=== PATIENT | female | born 2000 | race Two or more races ===

== ENCOUNTER 2020-03-08 13:38 | Emergency (ER) | payer OTHER ==
[~2020-03-08] VITALS: Ht 162.6 cm; Wt 83.9 kg
[2020-03-08] MEDS ORDERED: SODIUM CHLORIDE 0.9% 1,000 ML IV ONE (14:30)
[2020-03-08] MEDS ORDERED: AZITHROMYCIN 500MG/ 250ML 250 ML IV ONE (14:30)
[2020-03-08] MEDS ORDERED: methylPREDNISolone SOD SUCC 125 MG/2 ML VL IV ONE (14:30)
[2020-03-08 15:10] LABS: Basophils # (auto) 0 10 ^3/uL (0-0.2); Basophils % (auto) 0.2 % (0.0-2.0); Eosinophils # (auto) 0 10 ^3/uL (0-0.8); Hemoglobin 14.2 g/dL (12.2-16.2); Lymphocytes % (auto) 20.7 % (10.0-50.0); Mean Corpuscular Hemoglobin 30.1 pg (28.0-32.0); Mean Corpuscular Hgb Conc. 33.1 g/dL (32.0-36.0); Mean Corpuscular Volume 90.8 fL (80.0-100.0); Monocytes # (auto) 0.3 10 ^3/uL (0-1.3); Monocytes % (auto) 6.3 % (0.0-12.0); Neutrophils # (auto) 3.7 10 ^3/uL (1.6-8.6); Neutrophils % (auto) 72.8 % (37.0-80.0); Nucleated Red Blood Cells % 0.1 %; Platelet Count (auto) 148 10^3/uL (140-450); Red Blood Cells 4.73 10^6/uL (4.0-5.20); Red Cell Distribution Width 13.5 % (11.8-14.3)
[2020-03-08 15:18] LABS: Calcium 8.5 mg/dL (8.5-10.1); Potassium 4.4 mmol/L (3.5-5.1)
[2020-03-08 15:27] LABS: BUN/Creatinine Ratio 12.8; Bilirubin, Total 0.4 mg/dL (0.2-1.0); CRP High Sensitivity 2.49 mg/dL (< 0.3); Total Protein 8.5 g/dL (6.4-8.2)
[2020-03-08] MEDS ORDERED: hydrOXYchloroQUINE SULFATE 200 MG TAB PO ONE (15:45)
[2020-03-08] MEDS ORDERED: ACETAMINOPHEN 325 MG TAB PO ONE (17:00)
[2020-03-08 18:48] VITALS: BP 102/59
== END 2020-03-08 20:57 | disposition home or self-care (01) ==
LOC: ER 13:38
DX: R06.02 Shortness of breath (principal); R50.9 Fever, unspecified; R07.89 Other chest pain; Z20.828 Contact with and (suspected) exposure to other viral communicable diseases
CPT/HCPCS: 36415; 71045; 80053; 82728; 83615; 85025; 85379; 86141; 96365; 96366; 96375; 99284; J0456; J2930

== ENCOUNTER 2022-04-28 00:32 | Emergency (ER) | payer MEDICAID, OTHER ==
[~2022-04-28] VITALS: Ht 162.6 cm; Wt 84.0 kg
[2022-04-28 00:47] VITALS: BP 122/86
[2022-04-28] MEDS ORDERED: ONDANSETRON ODT 4 MG TAB PO ONE (01:00)
[2022-04-28] MEDS ORDERED: OXYCODONE W/ ACETAMINOPHEN 5/325MG TABLET PO ONE (01:00)
[2022-04-28 01:21] LABS: Basophils # (auto) 0 10 ^3/uL (0-0.2); Basophils % (auto) 0.3 % (0.0-2.0); Eosinophils # (auto) 0.1 10 ^3/uL (0-0.8); Eosinophils % (auto) 0.6 % (0.0-7.0); Hematocrit 39.5 % (36.0-46.0); Hemoglobin 13.3 g/dL (12.2-16.2); Lymphocytes # (auto) 2.3 10 ^3/uL (0.4-5.4); Lymphocytes % (auto) 22.8 % (10.0-50.0); Mean Corpuscular Hgb Conc. 33.7 g/dL (32.0-36.0); Mean Corpuscular Volume 89.2 fL (80.0-100.0); Monocytes # (auto) 0.6 10 ^3/uL (0-1.3); Monocytes % (auto) 5.7 % (0.0-12.0); Neutrophils # (auto) 7.2 10 ^3/uL (1.6-8.6); Neutrophils % (auto) 70.6 % (37.0-80.0); Nucleated Red Blood Cells % 0.1 %; Red Blood Cells 4.43 10^6/uL (4.0-5.20); Red Cell Distribution Width 13.4 % (11.8-14.3); White Blood Cell 10.3 10^3/uL (4.4-10.8)
[2022-04-28 01:41] LABS: Albumin 3.9 g/dL (3.4-5.0); BUN/Creatinine Ratio 12.8; Potassium 4.2 mmol/L (3.5-5.1)
[2022-04-28 01:44] LABS: Bilirubin, Total 0.3 mg/dL (0.2-1.0); Total Protein 7.7 g/dL (6.4-8.2)
[2022-04-28 02:45] LABS: Urine Bacteria NONE SEEN /hpf (None Seen); Urine Blood Negative /uL (Negative); Urine Specific Gravity 1.024 (1.001-1.035); Urine WBC 1 /hpf (0 - 5)
== END 2022-04-28 03:39 | disposition left against medical advice (07) ==
LOC: ER 00:35
DX: R10.31 Right lower quadrant pain (principal)
CPT/HCPCS: 36415; 71045; 74176; 80053; 81001; 83690; 85025

== ENCOUNTER 2022-08-31 13:03 | Inpatient (IN) | payer MEDICAID ==
[~2022-08-31] VITALS: Ht 160 cm; Wt 93.3 kg
[2022-08-31] MEDS ORDERED: DONNATAL 5ml ORAL Elix (BELLADONNA ALK-PHENOBARB) PO ONE (13:15)
[2022-08-31] MEDS ORDERED: LIDOCAINE VISCOUS 2% 15ML UD PO ONE (13:15)
[2022-08-31] MEDS ORDERED: MAALOX PLUS or MAALOX 30 ML PO ONE (13:15)
[2022-08-31] MEDS ORDERED: PANT40TA2 PO (13:47)
[2022-08-31 13:52] LABS: Basophils # (auto) 0.1 10 ^3/uL (0-0.2); Basophils % (auto) 0.6 % (0.0-2.0); Eosinophils # (auto) 0.1 10 ^3/uL (0-0.8); Eosinophils % (auto) 0.7 % (0.0-7.0); Hematocrit 41.2 % (36.0-46.0); Hemoglobin 13.7 g/dL (12.2-16.2); Lymphocytes # (auto) 2.2 10 ^3/uL (0.4-5.4); Lymphocytes % (auto) 15.7 % (10.0-50.0); Mean Corpuscular Hemoglobin 29.7 pg (28.0-32.0); Mean Corpuscular Hgb Conc. 33.2 g/dL (32.0-36.0); Mean Corpuscular Volume 89.4 fL (80.0-100.0); Monocytes # (auto) 0.8 10 ^3/uL (0-1.3); Neutrophils # (auto) 10.6 10 ^3/uL (1.6-8.6); Red Blood Cells 4.61 10^6/uL (4.0-5.20); Red Cell Distribution Width 13.2 % (11.8-14.3); White Blood Cell 13.8 10^3/uL (4.4-10.8)
[2022-08-31 14:25] LABS: Albumin 3.8 g/dL (3.4-5.0); BUN/Creatinine Ratio 9.1; Calcium 9.1 mg/dL (8.5-10.1)
[2022-08-31 14:28] LABS: Bilirubin, Total 0.6 mg/dL (0.2-1.0); Total Protein 8.2 g/dL (6.4-8.2)
[2022-08-31] MEDS ORDERED: ONDANSETRON HCL 4 MG/2 ML VIAL IV ONE (17:45)
[2022-08-31] MEDS ORDERED: MORPHINE SULFATE 4 MG/ML SYR/VIAL IV ONE (17:45)
[2022-08-31 18:45] LABS: Urine Bacteria FEW /hpf (None Seen); Urine Blood Negative /uL (Negative); Urine Mucus FEW (None Seen); Urine Specific Gravity 1.015 (1.001-1.035); Urine WBC 2 /hpf (0 - 5)
[2022-08-31] MEDS ORDERED: HYDROcodone-ACET 5/325MG TAB PO PRN (21:30)
[2022-08-31] MEDS ORDERED: ACETAMINOPHEN 325 MG TAB PO PRN (21:30)
[2022-08-31] MEDS ORDERED: MORPHINE SULFATE INJ 2 MG/ml SYRG IV PRN (21:30)
[2022-08-31] MEDS ORDERED: ONDANSETRON HCL 4 MG/2 ML VIAL IV PRN (21:30)
[2022-08-31] MEDS ORDERED: NITROGLYCERIN 0.4 MG SL TAB SL PRN (21:30)
[2022-08-31] MEDS ORDERED: PANTOPRAZOLE 40 MG TAB PO ONE (21:30)
[2022-08-31] MEDS ORDERED: TEMAZEPAM 15 MG CAP PO PRN (21:30)
[2022-08-31] MEDS ORDERED: CALCIUM CARB 500 MG CHEW TAB PO ONE (21:45)
[2022-09-01] VITALS (7 sets, daily range): BP systolic 98–124; BP diastolic 64–84
[2022-09-01 05:12] LABS: Basophils # (auto) 0 10 ^3/uL (0-0.2); Basophils % (auto) 0.5 % (0.0-2.0); Eosinophils # (auto) 0.1 10 ^3/uL (0-0.8); Eosinophils % (auto) 0.9 % (0.0-7.0); Hemoglobin 13.3 g/dL (12.2-16.2); Lymphocytes # (auto) 2.2 10 ^3/uL (0.4-5.4); Mean Corpuscular Hgb Conc. 33.3 g/dL (32.0-36.0); Mean Corpuscular Volume 90.2 fL (80.0-100.0); Monocytes # (auto) 0.7 10 ^3/uL (0-1.3); Monocytes % (auto) 9.4 % (0.0-12.0); Neutrophils # (auto) 4.4 10 ^3/uL (1.6-8.6); Neutrophils % (auto) 59.2 % (37.0-80.0); Nucleated Red Blood Cells % 0.1 %; Red Blood Cells 4.44 10^6/uL (4.0-5.20); Red Cell Distribution Width 13.6 % (11.8-14.3); White Blood Cell 7.5 10^3/uL (4.4-10.8)
[2022-09-01 05:29] LABS: Calcium 9.2 mg/dL (8.5-10.1); Potassium 4.1 mmol/L (3.5-5.1)
[2022-09-01 05:31] LABS: BUN/Creatinine Ratio 12.1
[2022-09-01] MEDS: PANTOPRAZOLE 40 MG TAB PO SCH (08:14)
[2022-09-01 15:17] LABS: Alcohol, Urine < 3.0 mg/dL (0-10); Amphetamine Screen, Urine NEGATIVE (NEGATIVE); Barbiturate Scree,Urine NEGATIVE (NEGATIVE); Benzodiazephine Screen, Urine NEGATIVE (NEGATIVE); Cannabinoid Screen, Urine NEGATIVE (NEGATIVE); Cocaine Screen, Urine NEGATIVE (NEGATIVE); Opiate Scree,Urine NEGATIVE (NEGATIVE); Phencyclidine Screen, Urine NEGATIVE (NEGATIVE)
[2022-09-02 04:58] VITALS: BP 108/50
[2022-09-02 06:31] LABS: Albumin 3.4 g/dL (3.4-5.0); Calcium 9.1 mg/dL (8.5-10.1); Potassium 3.9 mmol/L (3.5-5.1)
[2022-09-02 06:34] LABS: BUN/Creatinine Ratio 12.7
[2022-09-02 06:37] LABS: Bilirubin, Total 0.9 mg/dL (0.2-1.0); Total Protein 7.4 g/dL (6.4-8.2)
[2022-09-02 06:46] LABS: INR 0.98 (0.9-1.15); Partial Thromboplastin Time 28.4 sec (24.6-33.4)
[2022-09-02 09:00] VITALS: BP 107/63
[2022-09-02] MEDS: PANTOPRAZOLE 40 MG TAB PO SCH (09:28)
[2022-09-02] MEDS ORDERED: fentaNYL CITRATE 100 MCG/2 ML VL ONE (10:28)
[2022-09-02] MEDS ORDERED: LIDOCAINE VISCOUS 2% 15ML UD ONE (10:28)
[2022-09-02] MEDS ORDERED: SODIUM CHLORIDE LOCK 0 ML ONE (10:28)
[2022-09-02] MEDS ORDERED: diphenhdrAMINE HCL 50 MG/1 ML VL ONE (10:28)
[2022-09-02] MEDS ORDERED: EPINEPHrine HCL 1 MG/10 ML SYRG ONE (10:29)
[2022-09-02] MEDS ORDERED: MIDAZOLAM HCL 2MG/2ML 2ml VIAL (1mg/ml) ONE (10:29)
[2022-09-02 13:00] VITALS: BP 121/54
[2022-09-02] MEDS ORDERED: PROPOFOL 10 MG/ML 20 ML IV ONE (16:20)
[2022-09-02 17:00] VITALS: BP 100/63
[2022-09-02] MEDS ORDERED: ONDANSETRON HCL 4 MG/2 ML VIAL IV PRN (17:00)
[2022-09-02 20:00] VITALS: BP 113/74
[2022-09-02 22:00] VITALS: BP 113/74
[2022-09-03 05:00] VITALS: BP 109/65
[2022-09-03 05:41] LABS: Potassium 4.2 mmol/L (3.5-5.1)
[2022-09-03 05:47] LABS: Albumin 3.5 g/dL (3.4-5.0); BUN/Creatinine Ratio 21.1
[2022-09-03 05:50] LABS: Bilirubin, Total 0.5 mg/dL (0.2-1.0); Total Protein 6.8 g/dL (6.4-8.2)
[2022-09-03] MEDS: PANTOPRAZOLE 40 MG TAB PO SCH (08:06)
[2022-09-03 08:30] VITALS: BP 101/65
[2022-09-03] MEDS ORDERED: KETOROLAC TROMETH 30 MG/ML 1ML VIAL IV PRN (09:45)
[2022-09-03 10:53] LABS: Hepatitis A Total Antibody Positive (Negative)
[2022-09-03 11:25] LABS: Hepatitis B Surface Antibody Negative (Negative)
[2022-09-03 12:25] VITALS: BP 112/72
[2022-09-03 13:08] LABS: Hepatitis C Antibody Negative (Negative)
[2022-09-03] MEDS ORDERED: HYDROmorphone HCL 2 MG/ML VL/or syr IV ONE (16:15)
[2022-09-03 16:20] VITALS: BP 112/68
[2022-09-03 22:00] VITALS: BP 112/73
[2022-09-04 05:00] VITALS: BP 100/64
[2022-09-04 08:33] LABS: Albumin 3.5 g/dL (3.4-5.0); BUN/Creatinine Ratio 18.5; Potassium 4.3 mmol/L (3.5-5.1)
[2022-09-04 08:36] LABS: Total Protein 7.1 g/dL (6.4-8.2)
[2022-09-04 08:49] LABS: Basophils # (auto) 0 10 ^3/uL (0-0.2); Basophils % (auto) 0.4 % (0.0-2.0); Eosinophils # (auto) 0.1 10 ^3/uL (0-0.8); Eosinophils % (auto) 1.9 % (0.0-7.0); Hematocrit 41.1 % (36.0-46.0); Hemoglobin 13.2 g/dL (12.2-16.2); Lymphocytes % (auto) 30.5 % (10.0-50.0); Mean Corpuscular Hgb Conc. 32.1 g/dL (32.0-36.0); Mean Corpuscular Volume 90.4 fL (80.0-100.0); Monocytes # (auto) 0.5 10 ^3/uL (0-1.3); Monocytes % (auto) 8.1 % (0.0-12.0); Neutrophils # (auto) 3.9 10 ^3/uL (1.6-8.6); Neutrophils % (auto) 59.1 % (37.0-80.0); Red Blood Cells 4.54 10^6/uL (4.0-5.20); Red Cell Distribution Width 13.7 % (11.8-14.3); White Blood Cell 6.5 10^3/uL (4.4-10.8)
[2022-09-04] MEDS: PANTOPRAZOLE 40 MG TAB PO SCH (09:02)
[2022-09-04 09:11] VITALS: BP 104/62
[2022-09-04 13:06] VITALS: BP 117/67
[2022-09-04 17:00] VITALS: BP 112/63
[2022-09-04 22:00] VITALS: BP 111/65
[2022-09-05 05:00] VITALS: BP 101/59
[2022-09-05 08:30] VITALS: BP 116/66
[2022-09-05] MEDS: PANTOPRAZOLE 40 MG TAB PO SCH (08:42)
[2022-09-05 13:20] VITALS: BP 118/45
[2022-09-05 17:00] VITALS: BP 138/76
[2022-09-05 20:00] VITALS: BP 100/65
[2022-09-05 22:00] VITALS: BP 100/65
[2022-09-06 04:58] VITALS: BP 101/56
[2022-09-06] MEDS: PANTOPRAZOLE 40 MG TAB PO SCH (08:58)
[2022-09-06 09:00] VITALS: BP_SYST 115; BP_SYST 99; BP_DIAS 57; BP_DIAS 68
[2022-09-06 12:59] VITALS: BP 98/55
[2022-09-06 17:00] VITALS: BP 105/63
[2022-09-06 20:00] VITALS: BP 109/60
[2022-09-06 22:00] VITALS: BP 109/60
[2022-09-07 05:00] VITALS: BP 95/57
[2022-09-07 05:37] LABS: INR 0.93 (0.9-1.15); Partial Thromboplastin Time 27.3 sec (24.6-33.4)
[2022-09-07 05:42] LABS: Albumin 3.7 g/dL (3.4-5.0); Calcium 9.1 mg/dL (8.5-10.1); Potassium 4.7 mmol/L (3.5-5.1)
[2022-09-07 05:43] LABS: Basophils # (auto) 0 10 ^3/uL (0-0.2); Basophils % (auto) 0.3 % (0.0-2.0); Eosinophils # (auto) 0.2 10 ^3/uL (0-0.8); Eosinophils % (auto) 2.6 % (0.0-7.0); Hematocrit 39.3 % (36.0-46.0); Hemoglobin 12.7 g/dL (12.2-16.2); Lymphocytes # (auto) 2.9 10 ^3/uL (0.4-5.4); Lymphocytes % (auto) 35.2 % (10.0-50.0); Mean Corpuscular Hemoglobin 29.3 pg (28.0-32.0); Mean Corpuscular Hgb Conc. 32.3 g/dL (32.0-36.0); Mean Corpuscular Volume 90.8 fL (80.0-100.0); Monocytes # (auto) 0.6 10 ^3/uL (0-1.3); Monocytes % (auto) 7.8 % (0.0-12.0); Neutrophils # (auto) 4.4 10 ^3/uL (1.6-8.6); Neutrophils % (auto) 54.1 % (37.0-80.0); Nucleated Red Blood Cells % 0.1 %; Red Blood Cells 4.33 10^6/uL (4.0-5.20); Red Cell Distribution Width 13.6 % (11.8-14.3); White Blood Cell 8.1 10^3/uL (4.4-10.8)
[2022-09-07 05:47] LABS: BUN/Creatinine Ratio 17.3; Bilirubin, Total 0.4 mg/dL (0.2-1.0)
[2022-09-07 08:56] VITALS: BP 108/46
[2022-09-07] MEDS: PANTOPRAZOLE 40 MG TAB PO SCH (10:21)
[2022-09-07 12:59] VITALS: BP 106/57
== END 2022-09-07 14:53 | disposition short-term general hospital (02) ==
LOC: ER 13:03 → EDBD 13:03 → OVERFLOW 21:34 → EAST 23:50
PROVIDERS: ADMIT Nurse Practitioner; ATTEND Family Medicine
PROC: 0DB68ZX Excision of Stomach, Via Natural or Artificial Opening Endoscopic, Diagnostic (ICD-10-PCS; 2022-09-02)
PROC: 0DB98ZX Excision of Duodenum, Via Natural or Artificial Opening Endoscopic, Diagnostic (ICD-10-PCS; principal; 2022-09-02 16:17)
DX: K80.50 Calculus of bile duct without cholangitis or cholecystitis without obstruction (principal); E66.9 Obesity, unspecified; K21.9 Gastro-esophageal reflux disease without esophagitis; R07.89 Other chest pain; K29.70 Gastritis, unspecified, without bleeding; F41.9 Anxiety disorder, unspecified; R79.89 Other specified abnormal findings of blood chemistry; Z83.3 Family history of diabetes mellitus; Z83.438 Family history of other disorder of lipoprotein metabolism and other lipidemia; Z90.49 Acquired absence of other specified parts of digestive tract; Z68.35 Body mass index [BMI] 35.0-35.9, adult; Z20.822 Contact with and (suspected) exposure to COVID-19
CPT/HCPCS: 36415; 71275; 74176; 74181; 80048; 80053; 80307; 81001; 83605; 83690; 84484; 84702; 85025; 85379; 85610; 85730; 86038; 86704; 86706; 86708; 86803; 86850; 86900; 86901; 87340; 87426; 93005; 93306; 96374; 96375; G0378; J1885; J2250; J2405; J2704